=== PATIENT | male | born 1965 | race African-American/Black ===

== ENCOUNTER 2022-01-10 18:47 | Emergency (ER) | payer MEDICAID ==
[~2022-01-10] VITALS: Ht 180.3 cm; Wt 96.0 kg
[2022-01-10 19:05] VITALS: BP 154/96
== END 2022-01-11 09:19 | disposition left against medical advice (07) ==
LOC: ER 18:47
DX: Z53.21 Procedure and treatment not carried out due to patient leaving prior to being seen by health care provider (principal)